=== PATIENT | female | born 1950 | race Caucasian/White ===

== ENCOUNTER 2017-05-27 21:03 | Emergency (ER) | payer MEDICARE, BC ==
[2017-05-27 21:51] LABS: Basophils % (A) 1 %; CH 30.7; CHCM 34.7; Eosinophils # (A) 0.4 k/uL (0-0.7); Eosinophils % (A) 9 %; HCT 41.4 % (34.0-46.0); HDW 2.52; Luc # (Auto) 0.12; Luc % (Auto) 2; Lymphocytes # (A) 1.6 k/uL (1.0-4.8); Lymphocytes % (A) 32 %; MCH 30.1 pg (25.0-35.0); MCHC 33.9 g/dL (31.0-37.0); MCV 88.9 fL (80.0-100.0); Mean Platelet Volume 7.2; Monocytes # (A) 0.4 k/uL (0-1.0); Monocytes % (A) 8 %; Neutrophils # (A) 2.5 k/uL (1.3-7.7); Neutrophils % (A) 49 %; RBC 4.65 m/uL (3.80-5.40); RDW 13.4 % (11.5-15.5); WBC 5.1 k/uL (3.8-10.6); WBC (Perox) 4.94
[2017-05-27 22:00] LABS: ALT 40 U/L (9-52); AST 26 U/L (14-36); Alkaline Phosphatase 50 U/L (38-126); Anion Gap 10 mmol/L; Blood Urea Nitrogen 15 mg/dL (7-17); Calcium 9.4 mg/dL (8.4-10.2); Carbon Dioxide 25 mmol/L (22-30); Chloride 107 mmol/L (98-107); Glucose 111 mg/dL (74-99); Non-African American GFR(MDRD) >60 (>60 ml/min/1.73 sqM); Potassium 3.7 mmol/L (3.5-5.1); Sodium 142 mmol/L (137-145); Total Bilirubin 0.4 mg/dL (0.2-1.3); Total Protein 7.3 g/dL (6.3-8.2)
--- NOTE | 2017-05-27 22:06 | ED ---
General Adult HPI - General Chief complaint: Shortness of Breath Stated complaint: MERYL-Cardiac Pt Time Seen by Provider: 05/27/17 21:25 Source: patient, RN notes reviewed, old records reviewed Mode of arrival: ambulatory Limitations: no limitations - History of Present Illness Initial comments: This is a 66-year-old female here for evaluation of chest pain, patient has intermittent chest pain and burning. Patient has history of CAD history of stents history of CABG. No isn't cardiac disease or illness. Most recent stent was about 10 years ago. Patient has no fever cough or congestion. She says she is mildly short of breath. No recent travel history or sick contacts. Patient's vision nursing without just prior to arrival she became very weak her states she'll nearly collapsed, he was able her up she did come to. Patient was not postictal. Patient did not complain of headache or bowel pain. She has significant has continued complaining of mild chest pain. - Related Data Home Medications Medication Instructions Recorded Confirmed Albuterol Inhaler [Ventolin Hfa 1 - 2 puff INHALATION RT-QID PRN 05/27/17 Inhaler] Aspirin EC [Ecotrin Low Dose] 81 mg PO DAILY 05/27/17 05/27/17 Cholecalciferol (Vitamin D3) 2,000 unit PO DAILY 05/27/17 05/27/17 [Vitamin D3] Metoprolol Succinate (ER) [Toprol 12.5 mg PO DAILY 05/27/17 05/27/17 Xl] Nitroglycerin Sl Tabs [Nitrostat] 0.4 mg SUBLINGUAL Q5M PRN 05/27/17 05/27/17 [place]-3 Fatty Acids/Fish Oil [Fish 1 cap PO DAILY 05/27/17 05/27/17 Oil 1,000 mg Softgel] Pantoprazole [Protonix] 40 mg PO DAILY 05/27/17 05/27/17 Rosuvastatin [Crestor] 20 mg PO HS 05/27/17 05/27/17 Allergies Allergy/AdvReac Type Severity Reaction Status Date / Time meperidine [From Demerol] Allergy Rash/Hives Verified 05/27/17 21:36 metronidazole [From Flagyl] Allergy Rash/Hives Verified 05/27/17 21:36 Review of Systems ROS Statement: Those systems with pertinent positive or pertinent negative responses have been documented in the HPI. ROS Other: All systems not noted in ROS Statement are negative. Past Medical History Past Medical History: Coronary Artery Disease (CAD) History of Any Multi-Drug Resistant Organisms: None Reported Past Surgical History: Coronary Bypass/CABG Past Psychological History: No Psychological Hx Reported Smoking Status: Never smoker Past Alcohol Use History: None Reported General Exam Limitations: no limitations General appearance: alert, in no apparent distress Head exam: Present: atraumatic, normocephalic, normal inspection Eye exam: Present: normal appearance, PERRL, EOMI. Absent: scleral icterus, conjunctival injection, periorbital swelling ENT exam: Present: normal exam, mucous membranes moist Neck exam: Present: normal inspection. Absent: tenderness, meningismus, lymphadenopathy Respiratory exam: Present: normal lung sounds bilaterally. Absent: respiratory distress, wheezes, rales, rhonchi, stridor Cardiovascular Exam: Present: regular rate, normal rhythm, normal heart sounds. Absent: systolic murmur, diastolic murmur, rubs, gallop, clicks GI/Abdominal exam: Present: soft, normal bowel sounds. Absent: distended, tenderness, guarding, rebound, rigid Extremities exam: Present: normal inspection, full ROM, normal capillary refill. Absent: tenderness, pedal edema, joint swelling, calf tenderness Back exam: Present: normal inspection Neurological exam: Present: alert, oriented X3, CN II-XII intact Psychiatric exam: Present: normal affect, normal mood Skin exam: Present: warm, dry, intact, normal color. Absent: rash Course Vital Signs 05/27/17 05/27/17 05/27/17 21:10 21:37 22:00 Temperature 97.0 F L 98 F Pulse Rate 57 L 64 Respiratory 18 20 16 Rate Blood Pressure 173/81 159/87 O2 Sat by Pulse 100 99 Oximetry 05/27/17 05/27/17 23:00 23:58 Temperature 99.2 F Pulse Rate 69 63 Respiratory 20 18 Rate Blood Pressure 167/87 127/64 O2 Sat by Pulse 98 96 Oximetry - Reevaluation(s) Reevaluation #1: 05/27/17 23:12 Patient states her chest pain remains resolved but she is having symptoms of diarrhea and maybe some blood in her stool but she does believe that his hemorrhoid related EKG Findings - EKG Comments: EKG Findings:: EKG shows normal sinus rhythm at 66, IL 132, QRS 80, QTC 438 Medical Decision Making - Medical Decision Making 66 female ileo-chest pain history of significant heart disease and stents. Patient had a near syncopal event while at her house earlier today. This time she feels mildly improved with occasional bouts of chest pain. Patient will be admitted for cardiac observation - Lab Data Result diagrams: 05/27/17 21:30 05/27/17 21:30 Lab Results 05/27/17 05/27/17 05/27/17 Range/Units 21:30 21:30 21:30 WBC 5.1 (3.8-10.6) k/uL RBC 4.65 (3.80-5.40) m/uL Hgb 14.0 (11.4-16.0) gm/dL Hct 41.4 (34.0-46.0) % MCV 88.9 (80.0-100.0) fL MCH 30.1 (25.0-35.0) pg MCHC 33.9 (31.0-37.0) g/dL RDW 13.4 (11.5-15.5) % Plt Count 196 (150-450) k/uL Neutrophils % 49 % Lymphocytes % 32 % Monocytes % 8 % Eosinophils % 9 % Basophils % 1 % Neutrophils # 2.5 (1.3-7.7) k/uL Lymphocytes # 1.6 (1.0-4.8) k/uL Monocytes # 0.4 (0-1.0) k/uL Eosinophils # 0.4 (0-0.7) k/uL Basophils # 0.0 (0-0.2) k/uL PT (9.0-12.0) sec INR (<1.2) APTT (22.0-30.0) sec Sodium 142 (137-145) mmol/L Potassium 3.7 (3.5-5.1) mmol/L Chloride 107 (98-107) mmol/L Carbon Dioxide 25 (22-30) mmol/L Anion Gap 10 mmol/L BUN 15 (7-17) mg/dL Creatinine 0.64 (0.52-1.04) mg/dL Est GFR (MDRD) Af Amer >60 (>60 ml/min/1.73 sqM) Est GFR (MDRD) Non-Af >60 (>60 ml/min/1.73 sqM) Glucose 111 H (74-99) mg/dL Calcium 9.4 (8.4-10.2) mg/dL Total Bilirubin 0.4 (0.2-1.3) mg/dL AST 26 (14-36) U/L ALT 40 (9-52) U/L Alkaline Phosphatase 50 (38-126) U/L Total Creatine Kinase 143 H (30-135) U/L CK-MB (CK-2) 2.6 H* (0.0-2.4) ng/mL CK-MB (CK-2) Rel Index 1.8 Troponin I <0.012 (0.000-0.034) ng/mL Total Protein 7.3 (6.3-8.2) g/dL Albumin 4.5 (3.5-5.0) g/dL 05/27/17 Range/Units 21:30 WBC (3.8-10.6) k/uL RBC (3.80-5.40) m/uL Hgb (11.4-16.0) gm/dL Hct (34.0-46.0) % MCV (80.0-100.0) fL MCH (25.0-35.0) pg MCHC (31.0-37.0) g/dL RDW (11.5-15.5) % Plt Count (150-450) k/uL Neutrophils % % Lymphocytes % % Monocytes % % Eosinophils % % Basophils % % Neutrophils # (1.3-7.7) k/uL Lymphocytes # (1.0-4.8) k/uL Monocytes # (0-1.0) k/uL Eosinophils # (0-0.7) k/uL Basophils # (0-0.2) k/uL PT 10.3 (9.0-12.0) sec INR 1.0 (<1.2) APTT 20.6 L (22.0-30.0) sec Sodium (137-145) mmol/L Potassium (3.5-5.1) mmol/L Chloride (98-107) mmol/L Carbon Dioxide (22-30) mmol/L Anion Gap mmol/L BUN (7-17) mg/dL Creatinine (0.52-1.04) mg/dL Est GFR (MDRD) Af Amer (>60 ml/min/1.73 sqM) Est GFR (MDRD) Non-Af (>60 ml/min/1.73 sqM) Glucose (74-99) mg/dL Calcium (8.4-10.2) mg/dL Total Bilirubin (0.2-1.3) mg/dL AST (14-36) U/L ALT (9-52) U/L Alkaline Phosphatase (38-126) U/L Total Creatine Kinase (30-135) U/L CK-MB (CK-2) (0.0-2.4) ng/mL CK-MB (CK-2) Rel Index Troponin I (0.000-0.034) ng/mL Total Protein (6.3-8.2) g/dL Albumin (3.5-5.0) g/dL - Radiology Data Radiology results: report reviewed (Chest x-ray negative for acute disease, CTA negative for acute disease), image reviewed Critical Care Time Critical Care Time: Yes Total Critical Care Time: 31 Disposition Clinical Impression: Chest pain, Near syncope Disposition: HOME SELF-CARE Condition: Undetermined Instructions: Chest Pain (ED) Referrals: Roel Carrizales MD [Primary Care Provider] - 1-2 days
[2017-05-27 22:08] LABS: Creatine Kinase 143 U/L (30-135)
[2017-05-27 22:12] LABS: Prothrombin Time 10.3 sec (9.0-12.0)
[2017-05-27 22:21] LABS: Troponin I <0.012 ng/mL (0.000-0.034)
[2017-05-27] MEDS ORDERED: RX INFO: IV CONTRAST WAS GIVEN 1 EACH MISC MISCELLANE PRN (22:24)
[2017-05-27 22:28] LABS: Creatine Kinase MB 2.6 ng/mL (0.0-2.4)
[2017-05-27 22:33] LABS: Partial Thromboplastin Time 20.6 sec (22.0-30.0)
--- NOTE | 2017-05-27 22:37 | XR ---
EXAM: XR Chest, 2 Views CLINICAL HISTORY: Reason: difficulty breathing TECHNIQUE: Frontal and lateral views of the chest. COMPARISON: No relevant prior studies available. FINDINGS: Lungs: Lungs are clear. Pleural space: No evidence of pneumothorax or pleural effusion. Heart: Heart size is within normal limits. Mediastinum: Mediastinal structures are unremarkable Bones/joints: Post surgical changes of previous median sternotomy. Imaged bony thorax is unremarkable. IMPRESSION: No radiographic evidence of active chest disease.
--- NOTE | 2017-05-27 23:50 | CT ---
EXAM: CT Chest With Intravenous Contrast CLINICAL HISTORY: Reason: Pain TECHNIQUE: Axial computed tomography images of the chest with intravenous contrast during the arterial phase of enhancement. CTDI is 30.2 mGy and DLP is 466.0 mGy-cm. This CT exam was performed using one or more of the following dose reduction techniques: automated exposure control, adjustment of the mA and/or kV according to patient size, and/or use of iterative reconstruction technique. Coronal and sagittal reformatted images were created and reviewed. COMPARISON: Chest radiographs 05/27/2017 FINDINGS: Pulmonary arteries: No evidence of acute pulmonary embolic disease. No evidence of thoracic aortic aneurysm or dissection. Aorta: No thoracic aortic aneurysm. Lungs: Small 4 mm left apical pulmonary nodule. Mild dependent pulmonary atelectatic changes. No acute pulmonary infiltrates or consolidations. Pleural space: No evidence of pleural effusion or pneumothorax. Heart: Heart size is within normal limits. No significant pericardial effusion. Bones/joints: Post surgical changes of previous median sternotomy. Mild thoracic spondylosis. Lymph nodes: Mildly enlarged precarinal mediastinal lymph node measuring approximately 1.2 cm. Borderline enlarged left hilar lymph node measuring approximately 1.0 cm. Liver: Evidence of small hiatal hernia. Small subcentimeter hepatic low-density lesions which are nonspecific and may represent small hepatic cysts, but too small for definitive CT characterization. IMPRESSION: No evidence of acute pulmonary embolic disease. No evidence of thoracic aortic aneurysm or dissection. Mildly enlarged mediastinal and borderline enlarged left hilar lymph nodes which are nonspecific. Small 4 mm left apical pulmonary nodule. CT follow-up recommended as per Fleischner criteria. Probable small subcentimeter hepatic cysts. Small hiatal hernia
[2017-05-28 00:01] VITALS: BP 127/64; PULSE 63; RESP 18; TEMP 99.2
== END 2017-05-28 00:30 | disposition home or self-care (01) ==
LOC: EC 21:03
DX: R07.9 Chest pain, unspecified (principal); R55 Syncope and collapse; R06.02 Shortness of breath; I25.10 Atherosclerotic heart disease of native coronary artery without angina pectoris; Z95.1 Presence of aortocoronary bypass graft; Z79.82 Long term (current) use of aspirin; Z79.899 Other long term (current) drug therapy; Z88.1 Allergy status to other antibiotic agents; Z88.5 Allergy status to narcotic agent
CPT/HCPCS: 36415; 93005; 80053; 82550; 82553; 84484; 85025; 85610; 85730; 71020; 71275; 99291; Q9967

== ENCOUNTER 2017-12-31 17:57 | Emergency (ER) | payer MEDICARE, BC ==
--- NOTE | 2017-12-31 18:13 | ED ---
General Adult HPI - General Stated complaint: CHEST PAIN Time Seen by Provider: 12/31/17 18:03 Source: RN notes reviewed, old records reviewed - History of Present Illness Initial comments: This is a 67-year-old female the ER for evaluation of chest pain, severe anterior crushing chest pain. Rating to her back. Patient does have history of CAD and CABG, pain right her prior to arrival, positive swelling positive shortness of breath severe pain - Related Data Home Medications Medication Instructions Recorded Confirmed Albuterol Inhaler [Ventolin Hfa 1 - 2 puff INHALATION RT-QID PRN 05/27/17 Inhaler] Aspirin EC [Ecotrin Low Dose] 81 mg PO DAILY 05/27/17 12/31/17 Cholecalciferol (Vitamin D3) 2,000 unit PO DAILY 05/27/17 12/31/17 [Vitamin D3] Metoprolol Succinate (ER) [Toprol 12.5 mg PO DAILY 05/27/17 12/31/17 Xl] Nitroglycerin Sl Tabs [Nitrostat] 0.4 mg SUBLINGUAL Q5M PRN 05/27/17 12/31/17 [place]-3 Fatty Acids/Fish Oil [Fish 1 cap PO DAILY 05/27/17 12/31/17 Oil 1,000 mg Softgel] Rosuvastatin [Crestor] 20 mg PO HS 05/27/17 12/31/17 HYDROcodone/APAP 5-325MG [[place] 0.5 tab PO BID PRN 12/31/17 12/31/17 5-325] Pantoprazole Sodium [Protonix] 20 mg PO DAILY 12/31/17 12/31/17 Allergies Allergy/AdvReac Type Severity Reaction Status Date / Time meperidine [From Demerol] Allergy Rash/Hives Verified 12/31/17 18:46 metronidazole [From Flagyl] Allergy Rash/Hives Verified 12/31/17 18:46 Review of Systems ROS Statement: Those systems with pertinent positive or pertinent negative responses have been documented in the HPI. ROS Other: All systems not noted in ROS Statement are negative. Past Medical History Past Medical History: Coronary Artery Disease (CAD) History of Any Multi-Drug Resistant Organisms: None Reported Past Surgical History: Coronary Bypass/CABG Past Psychological History: No Psychological Hx Reported Smoking Status: Never smoker Past Alcohol Use History: None Reported General Exam General appearance: alert, in no apparent distress, anxious Head exam: Present: atraumatic, normocephalic, normal inspection Eye exam: Present: normal appearance, PERRL, EOMI. Absent: scleral icterus, conjunctival injection, periorbital swelling ENT exam: Present: normal exam, mucous membranes moist Neck exam: Present: normal inspection. Absent: tenderness, meningismus, lymphadenopathy Respiratory exam: Present: normal lung sounds bilaterally. Absent: respiratory distress, wheezes, rales, rhonchi, stridor Cardiovascular Exam: Present: regular rate, normal rhythm, normal heart sounds. Absent: systolic murmur, diastolic murmur, rubs, gallop, clicks GI/Abdominal exam: Present: soft, normal bowel sounds. Absent: distended, tenderness, guarding, rebound, rigid Extremities exam: Present: normal inspection, full ROM, normal capillary refill. Absent: tenderness, pedal edema, joint swelling, calf tenderness Back exam: Present: normal inspection Neurological exam: Present: alert, oriented X3, CN II-XII intact Psychiatric exam: Present: normal affect, normal mood Skin exam: Present: warm, dry, intact, normal color. 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 Patient coming to the second troponin EKG Findings - EKG Comments: EKG Findings:: EKG shows normal sinus rhythm at 77, IL 152, QRS 84, QTC 448. Repeat. EKG shows normal sinus rhythm at 70, IL 160, QRS 84, QTC 440 Medical Decision Making - Medical Decision Making 67 cemented ER positive chest pain negative troponin 2 normal EKG, patient can be discharged home - Lab Data Result diagrams: 12/31/17 17:35 12/31/17 17:35 Lab Results 12/31/17 12/31/17 12/31/17 Range/Units 17:35 17:35 17:35 WBC 5.5 (3.8-10.6) k/uL RBC 4.68 (3.80-5.40) m/uL Hgb 13.9 (11.4-16.0) gm/dL Hct 41.0 (34.0-46.0) % MCV 87.7 (80.0-100.0) fL MCH 29.8 (25.0-35.0) pg MCHC 33.9 (31.0-37.0) g/dL RDW 12.3 (11.5-15.5) % Plt Count 200 (150-450) k/uL Neutrophils % 54 % Lymphocytes % 33 % Monocytes % 5 % Eosinophils % 6 % Basophils % 0 % Neutrophils # 3.0 (1.3-7.7) k/uL Lymphocytes # 1.8 (1.0-4.8) k/uL Monocytes # 0.3 (0-1.0) k/uL Eosinophils # 0.3 (0-0.7) k/uL Basophils # 0.0 (0-0.2) k/uL PT (9.0-12.0) sec INR (<1.2) APTT (22.0-30.0) sec D-Dimer (<0.60) mg/L FEU Sodium 144 (137-145) mmol/L Potassium 4.2 (3.5-5.1) mmol/L Chloride 104 (98-107) mmol/L Carbon Dioxide 24 (22-30) mmol/L Anion Gap 16 mmol/L BUN 19 H (7-17) mg/dL Creatinine 0.67 (0.52-1.04) mg/dL Est GFR (CKD-EPI)AfAm >90 (>60 ml/min/1.73 sqM) Est GFR (CKD-EPI)NonAf >90 (>60 ml/min/1.73 sqM) Glucose 101 H (74-99) mg/dL Calcium 9.7 (8.4-10.2) mg/dL Magnesium 2.3 (1.6-2.3) mg/dL Total Bilirubin 0.5 (0.2-1.3) mg/dL AST 29 (14-36) U/L ALT 29 (9-52) U/L Alkaline Phosphatase 52 (38-126) U/L Total Creatine Kinase 145 H (30-135) U/L CK-MB (CK-2) 2.0 (0.0-2.4) ng/mL CK-MB (CK-2) Rel Index 1.4 Troponin I <0.012 (0.000-0.034) ng/mL NT-Pro-B Natriuret Pep pg/mL Total Protein 7.7 (6.3-8.2) g/dL Albumin 5.0 (3.5-5.0) g/dL Lipase 200 (23-300) U/L 12/31/17 12/31/17 Range/Units 17:35 17:35 WBC (3.8-10.6) k/uL RBC (3.80-5.40) m/uL Hgb (11.4-16.0) gm/dL Hct (34.0-46.0) % MCV (80.0-100.0) fL MCH (25.0-35.0) pg MCHC (31.0-37.0) g/dL RDW (11.5-15.5) % Plt Count (150-450) k/uL Neutrophils % % Lymphocytes % % Monocytes % % Eosinophils % % Basophils % % Neutrophils # (1.3-7.7) k/uL Lymphocytes # (1.0-4.8) k/uL Monocytes # (0-1.0) k/uL Eosinophils # (0-0.7) k/uL Basophils # (0-0.2) k/uL PT 10.0 (9.0-12.0) sec INR 1.0 (<1.2) APTT 22.2 (22.0-30.0) sec D-Dimer 0.25 (<0.60) mg/L FEU Sodium (137-145) mmol/L Potassium (3.5-5.1) mmol/L Chloride (98-107) mmol/L Carbon Dioxide (22-30) mmol/L Anion Gap mmol/L BUN (7-17) mg/dL Creatinine (0.52-1.04) mg/dL Est GFR (CKD-EPI)AfAm (>60 ml/min/1.73 sqM) Est GFR (CKD-EPI)NonAf (>60 ml/min/1.73 sqM) Glucose (74-99) mg/dL Calcium (8.4-10.2) mg/dL Magnesium (1.6-2.3) mg/dL Total Bilirubin (0.2-1.3) mg/dL AST (14-36) U/L ALT (9-52) U/L Alkaline Phosphatase (38-126) U/L Total Creatine Kinase (30-135) U/L CK-MB (CK-2) (0.0-2.4) ng/mL CK-MB (CK-2) Rel Index Troponin I (0.000-0.034) ng/mL NT-Pro-B Natriuret Pep 65 pg/mL Total Protein (6.3-8.2) g/dL Albumin (3.5-5.0) g/dL Lipase (23-300) U/L - Radiology Data Radiology results: report reviewed (CTA chest negative), image reviewed Disposition Clinical Impression: Chest pain Disposition: HOME SELF-CARE Condition: Undetermined Instructions: Chest Pain (ED) Is patient prescribed a controlled substance at d/c from ED?: No Referrals: Roel Carrizales MD [Primary Care Provider] - 1-2 days
[2017-12-31] MEDS ORDERED: SODIUM CHLORIDE 0.9% 1,000 ML IV STA (18:23)
[2017-12-31] MEDS ORDERED: MORPHINE SULFATE 4 MG/0.8 ML SYRINGE (INJ) IV STA (18:23)
[2017-12-31 18:53] LABS: Basophils % (A) 0 %; Eosinophils # (A) 0.3 k/uL (0-0.7); Eosinophils % (A) 6 %; HGB 13.9 gm/dL (11.4-16.0); Lymphocytes # (A) 1.8 k/uL (1.0-4.8); Lymphocytes % (A) 33 %; MCH 29.8 pg (25.0-35.0); MCHC 33.9 g/dL (31.0-37.0); MCV 87.7 fL (80.0-100.0); Mean Platelet Volume 6.4; Monocytes # (A) 0.3 k/uL (0-1.0); Monocytes % (A) 5 %; Neutrophils % (A) 54 %; Platelet Count 200 k/uL (150-450); RBC 4.68 m/uL (3.80-5.40); RDW 12.3 % (11.5-15.5); WBC 5.5 k/uL (3.8-10.6)
[2017-12-31 19:08] LABS: ALT 29 U/L (9-52); AST 29 U/L (14-36); Alkaline Phosphatase 52 U/L (38-126); Anion Gap 16 mmol/L; Blood Urea Nitrogen 19 mg/dL (7-17); Calcium 9.7 mg/dL (8.4-10.2); Carbon Dioxide 24 mmol/L (22-30); Chloride 104 mmol/L (98-107); Glucose 101 mg/dL (74-99); Lipase 200 U/L (23-300); Magnesium 2.3 mg/dL (1.6-2.3); Potassium 4.2 mmol/L (3.5-5.1); Sodium 144 mmol/L (137-145); Total Bilirubin 0.5 mg/dL (0.2-1.3); Total Protein 7.7 g/dL (6.3-8.2)
[2017-12-31 19:09] LABS: Creatine Kinase 145 U/L (30-135)
--- NOTE | 2017-12-31 19:13 | XR ---
EXAMINATION TYPE: XR chest 2V DATE OF EXAM: 12/31/2017 COMPARISON: 05/27/2017 HISTORY: Chest pain TECHNIQUE: Frontal and lateral views of the chest are obtained. FINDINGS: Heart and mediastinum are normal. Lungs are clear. Diaphragm is normal. There are sternal wires. Bony thorax is intact. IMPRESSION: Normal chest. No change.
[2017-12-31 19:19] LABS: Troponin I <0.012 ng/mL (0.000-0.034)
[2017-12-31] MEDS ORDERED: diphenhydrAMINE 50 MG/ML 1 ML VIAL IVP STA (19:19)
[2017-12-31 19:35] LABS: D-Dimer 0.25 mg/L FEU (<0.60); Partial Thromboplastin Time 22.2 sec (22.0-30.0)
--- NOTE | 2017-12-31 20:00 | CT ---
EXAMINATION TYPE: CT angio thoracic/abd aorta DATE OF EXAM: 12/31/2017 COMPARISON: NONE HISTORY: Chest pain. CT DLP: 700.9 mGycm. Automated Exposure Control for Dose Reduction was Utilized. CONTRAST: CT scan of the thorax, abdomen and pelvis is performed with IV Contrast, patient injected with 100ml mL of Isovue 370. There are 3-D post processed images. FINDINGS: The lungs are clear of infiltrate. There is no pleural effusion. Heart size is normal. Thoracic aorta shows mild atheromatous change. There is no evidence of aortic aneurysm or dissection. Ascending aor ta measures up to 3 cm. Abdominal aorta is patent. There is no evidence of abdominal aortic aneurysm or dissection. Iliac art eries are widely patent. There is bilateral patency of the renal arteries. There is patency of the ce liac artery and the superior mesenteric artery. Kidneys show normal contrast opacification. There is no retroperitoneal adenopathy. There is no ascites. Conclusion negative CT angiogram of the thoracic and abdominal aorta.
[2017-12-31 21:19] VITALS: RESP 14
[2017-12-31 22:03] VITALS: BP 128/67; PULSE 52; TEMP 97.9
== END 2017-12-31 22:19 | disposition home or self-care (01) ==
LOC: EC 17:57
DX: R07.9 Chest pain, unspecified (principal); R06.02 Shortness of breath; R22.2 Localized swelling, mass and lump, trunk; I25.10 Atherosclerotic heart disease of native coronary artery without angina pectoris; Z88.1 Allergy status to other antibiotic agents; Z88.5 Allergy status to narcotic agent; Z79.82 Long term (current) use of aspirin; Z79.899 Other long term (current) drug therapy; Z53.8 Procedure and treatment not carried out for other reasons; Z95.1 Presence of aortocoronary bypass graft
CPT/HCPCS: 99285; 96374; 96361 ×3; 36415; 93005; 85379; 83880; 80053; 82550; 82553; 83690; 83735; 84484; 85025; 85610; 85730; 71046; 75635; 71275; Q9967; J2270

== ENCOUNTER 2019-11-29 20:56 | Observation (INO) | payer MEDICARE, BC ==
[2019-11-29] MEDS ORDERED: ASPIRIN 81 MG PO STA (21:24)
[2019-11-29 21:35] LABS: Basophils % (A) 0 %; Eosinophils # (A) 0.3 k/uL (0-0.7); Eosinophils % (A) 5 %; HGB 14.4 gm/dL (11.4-16.0); Lymphocytes # (A) 1.6 k/uL (1.0-4.8); Lymphocytes % (A) 30 %; MCH 30.3 pg (25.0-35.0); MCHC 34.3 g/dL (31.0-37.0); MCV 88.4 fL (80.0-100.0); Mean Platelet Volume 6.6; Monocytes # (A) 0.3 k/uL (0-1.0); Monocytes % (A) 6 %; Neutrophils # (A) 3.1 k/uL (1.3-7.7); Neutrophils % (A) 56 %; Platelet Count 216 k/uL (150-450); RBC 4.75 m/uL (3.80-5.40); RDW 12.1 % (11.5-15.5); WBC 5.5 k/uL (3.8-10.6)
[2019-11-29 21:42] LABS: INR 0.9 (<1.2); Prothrombin Time 9.7 sec (9.0-12.0)
--- NOTE | 2019-11-29 21:44 | XR ---
EXAMINATION TYPE: XR chest 2V DATE OF EXAM: 11/29/2019 COMPARISON: Chest x-ray and CT December 31, 2017. HISTORY: Chest pain. TECHNIQUE: Frontal and lateral views of the chest are obtained. FINDINGS: Overlying sternal wires some which are broken are redemonstrated. Mediastinal clips are aga in seen. Overlying EKG leads are again seen. There is no focal air space opacity, pleural effusion, o r pneumothorax seen. The cardiac silhouette size remains within normal limits. The osseous structu res are intact. IMPRESSION: No acute cardiopulmonary process. No significant change from prior studies.
[2019-11-29 21:48] LABS: ALT 25 U/L (4-34); AST 29 U/L (14-36); African American GFR (CKD) >90 (>60 ml/min/1.73 sqM); Albumin 4.6 g/dL (3.5-5.0); Alkaline Phosphatase 51 U/L (38-126); Anion Gap 7 mmol/L; Blood Urea Nitrogen 17 mg/dL (7-17); Calcium 9.5 mg/dL (8.4-10.2); Carbon Dioxide 27 mmol/L (22-30); Chloride 105 mmol/L (98-107); Glucose 120 mg/dL (74-99); Magnesium 2.4 mg/dL (1.6-2.3); Non-African American GFR(CKD) >90 (>60 ml/min/1.73 sqM); Potassium 3.9 mmol/L (3.5-5.1); Sodium 139 mmol/L (137-145); Total Bilirubin 0.3 mg/dL (0.2-1.3); Total Protein 7.3 g/dL (6.3-8.2)
[2019-11-29 21:49] LABS: Partial Thromboplastin Time 22.1 sec (22.0-30.0)
--- NOTE | 2019-11-29 21:49 | ED ---
Chest Pain HPI - General Chief Complaint: Chest Pain Stated Complaint: Chest Pain Time Seen by Provider: 11/29/19 21:00 Source: patient Mode of arrival: ambulatory Limitations: no limitations - History of Present Illness Initial Comments: The patient is a 69-year-old female with past nuchal history of coronary disease with CABG in 2007 who presents to the emergency room with reported chest pain. She describes it as a chest pressure in the center of her chest which radiates through to her back and up to her left jaw. States the pain is intermittent without provocative factors. Admits to associated shortness of breath with the pain. Also reports that it feels as if her heart is skipping a beat. reports that she looks winded going up a flight of stairs. She has had intermittent pain since . Denies any active chest pain at this moment. Admits to associated nausea without vomiting. Denies diaphoresis. No cough, fevers or hemoptysis. Denies history of DVT or PE. No lower extremity edema. Denies calf pain or swelling. Bypass is performed in 2007. States that afterwards she had a stent placed in 2009. She sees Dr. Carlos out of [facility]. Last stress test was one year ago and catheterization 5 years ago. There are no other alleviating, precipitating or modifying factors - Related Data Home Medications Medication Instructions Recorded Confirmed Albuterol Inhaler [Ventolin Hfa 2 puff INHALATION RT-QID PRN 05/27/17 11/29/19 Inhaler] Aspirin EC [Ecotrin Low Dose] 81 mg PO DAILY 05/27/17 11/29/19 Cholecalciferol (Vitamin D3) 2,000 unit PO DAILY 05/27/17 11/29/19 [Vitamin D3] Metoprolol Succinate (ER) [Toprol 18.75 mg PO DAILY 05/27/17 11/29/19 XL] Nitroglycerin Sl Tabs [Nitrostat] 0.4 mg SUBLINGUAL Q5M PRN 05/27/17 11/29/19 [place] Fatty Acids/Fish Oil [Fish 1 cap PO DAILY 05/27/17 11/29/19 Oil 1,000 mg Softgel] Rosuvastatin [Crestor] 20 mg PO HS 05/27/17 11/29/19 HYDROcodone/APAP 5-325MG [[place] 0.5 tab PO TID PRN 12/31/17 11/29/19 5-325] Multivitamins, Thera [Multivitamin 1 tab PO DAILY 11/29/19 11/29/19 (formulary)] Pantoprazole [Protonix] 40 mg PO DAILY 11/29/19 11/29/19 Ubidecarenone [Co Q-10] 100 mg PO DAILY 11/29/19 11/29/19 Previous Rx's Medication Instructions Recorded Isosorbide Mononitrate ER [Imdur] 30 mg PO DAILY #30 tab.er.24h 12/01/19 Allergies Allergy/AdvReac Type Severity Reaction Status Date / Time meperidine [From Demerol] Allergy Rash/Hives Verified 11/29/19 21:00 metronidazole [From Flagyl] Allergy Rash/Hives Verified 11/29/19 21:00 Review of Systems ROS Statement: Those systems with pertinent positive or pertinent negative responses have been documented in the HPI. ROS Other: All systems not noted in ROS Statement are negative. EKG Findings - EKG Comments: EKG Findings:: EKG performed at 2106 demonstrates normal sinus rhythm with a ventricular rate of 64. WA interval 146. QRS 76. QTC of 408. There are inverted T waves in leads V2 through V6. No acute ST segment elevation. EKG is compared patient's previous in 2018 and T-wave inversions are new. Repeat EKG at 2156 demonstrates sinus bradycardia with ventricular rate of 56. WA interval 160. QRS 80. QTC of 399. No acute ST segment elevations. Inverted T-wave in lead V2 to V6. No high degree block Past Medical History Past Medical History: Coronary Artery Disease (CAD) History of Any Multi-Drug Resistant Organisms: None Reported Past Surgical History: Coronary Bypass/CABG Past Psychological History: No Psychological Hx Reported Smoking Status: Never smoker Past Alcohol Use History: None Reported Past Drug Use History: None Reported General Exam Limitations: no limitations General appearance: alert, in no apparent distress Head exam: Present: atraumatic, normocephalic, normal inspection Eye exam: Present: normal appearance, PERRL, EOMI. Absent: scleral icterus, conjunctival injection, periorbital swelling ENT exam: Present: normal exam, mucous membranes moist Neck exam: Present: normal inspection. Absent: tenderness, meningismus, lymphadenopathy Respiratory exam: Present: normal lung sounds bilaterally. Absent: respiratory distress, wheezes, rales, rhonchi, stridor Cardiovascular Exam: Present: regular rate, normal rhythm, normal heart sounds. Absent: systolic murmur, diastolic murmur, rubs, gallop, clicks GI/Abdominal exam: Present: soft, normal bowel sounds. Absent: distended, tenderness, guarding, rebound, rigid Extremities exam: Present: normal inspection, full ROM, normal capillary refill. Absent: tenderness, pedal edema, joint swelling, calf tenderness Back exam: Present: normal inspection Neurological exam: Present: alert, oriented X3, CN II-XII intact Psychiatric exam: Present: normal affect, normal mood Skin exam: Present: warm, dry, intact, normal color. Absent: rash Course Vital Signs 11/29/19 11/29/19 20:58 22:10 Temperature 97.8 F Pulse Rate 78 53 L Respiratory 20 17 Rate Blood Pressure 190/85 138/86 O2 Sat by Pulse 100 97 Oximetry Chest Pain MDM - MDM Upon arrival patient was placed into room 1. A thorough history and physical exam was performed. 12-lead EKG demonstrates inverted T waves in leads V2 through V6. Peripheral IV was established. Laboratory studies were conducted. The patient was given an additional 2- 81 mg aspirin as she did take 2 of them at home. Laboratory studies demonstrate no acute findings. First troponin is negative. Chest x-ray demonstrates no acute cardiothoracic process. No significant change from prior studies. I did repeat a 12-lead EKG as the patient did report return of her chest pain. He continues to demonstrate the inverted T waves with no ST elevation. Because of the patient's cardiac history I did recommend admission to the hospital in order to trend her troponins. I recommended heparinizing the patient as she does not have any contraindications. The patient did agree to this. I discussed the case with Dr. Villeda who accepted admission. Cardiology will be consulted. The patient remained in stable con dition awaiting a bed on the floor Critical Care Time Critical Care Time: Yes Critical Care Time: 35 minutes Disposition Clinical Impression: Chest pain, History of ASCVD Disposition: ADMITTED IP TO THIS [facility] Condition: Stable Is patient prescribed a controlled substance at d/c from ED?: No Decision to Admit Reason: Admit from EC Decision Date: 11/29/19 Decision Time: 22:15
[2019-11-29] MEDS ORDERED: NALOXONE 0.4 MG/ML 1 ML VIAL IV PRN (22:15)
[2019-11-29] MEDS ORDERED: HEPARIN SODIUM,PORCINE 5,000 UNIT/ML 1 ML VIAL IV ONE (22:15)
[2019-11-29] MEDS ORDERED: HEPARIN SODIUM,PORCINE 5,000 UNIT/ML 1 ML VIAL IV PRN (22:15)
[2019-11-29] MEDS ORDERED: ALBUTEROL NEBULIZED 2.5 MG/3 ML INHALATION PRN (22:27)
[2019-11-29] MEDS: HEPARIN SOD,PORK IN 0.45% NACL 25,000 UNIT in 0.45% NACL 1 250ML.BAG IV SCH (22:40)
[2019-11-30] MEDS: HYDROcodone/APAP 5-325MG 1 EACH TAB PO PRN ×3 (00:12→18:41)
[2019-11-30 03:52] LABS: Basophils % (A) 0 %; Eosinophils # (A) 0.3 k/uL (0-0.7); Eosinophils % (A) 5 %; HCT 39.1 % (34.0-46.0); HGB 13.1 gm/dL (11.4-16.0); Lymphocytes # (A) 2.3 k/uL (1.0-4.8); Lymphocytes % (A) 37 %; MCH 30.2 pg (25.0-35.0); MCHC 33.4 g/dL (31.0-37.0); MCV 90.3 fL (80.0-100.0); Mean Platelet Volume 6.8; Monocytes # (A) 0.3 k/uL (0-1.0); Monocytes % (A) 5 %; Neutrophils # (A) 3.1 k/uL (1.3-7.7); Neutrophils % (A) 50 %; Platelet Count 181 k/uL (150-450); RBC 4.33 m/uL (3.80-5.40); RDW 12.2 % (11.5-15.5); WBC 6.3 k/uL (3.8-10.6)
[2019-11-30 04:15] LABS: Partial Thromboplastin Time 70.4 sec (22.0-30.0); Prothrombin Time 10.5 sec (9.0-12.0)
[2019-11-30] MEDS: ASPIRIN 81 MG PO SCH (09:37)
[2019-11-30] MEDS: PANTOPRAZOLE 40 MG TABLET PO SCH (09:37)
--- NOTE | 2019-11-30 09:42 | CONS ---
CONSULTATION CHIEF COMPLAINT: Chest pain. Myrtle is a 69-year-old lady with history of coronary artery disease, status post 2 vessel CABG in 2007 at [facility]. She subsequently has had angioplasty, I believe in 2009 and most recently had a cardiac catheterization 5 years ago and a stress test within the last several years. Comes into hospital complaining of chest pain. She describes it as a precordial chest pressure with left arm and back radiation. She also has shortness of breath with exertion. At the time of my evaluation, she is pain free. She denies leg edema, PND or orthopnea. EKG shows sinus rhythm with changes of myocardial ischemia. The patient is currently on aspirin, Lipitor, heparin and Toprol. Given the symptoms suggestive of unstable angina, EKG changes and known CAD, I advised the patient to undergo cardiac catheterization for further evaluation. She wants to think over. She follows with a ob/gyn physician, I believe from [facility] so she is not entirely sure if she wants to have a catheterization done here in [place]. PAST MEDICAL HISTORY: Significant for CAD, status post CABG, hypertension, dyslipidemia. MEDICATIONS: Include Crestor 20 q. daily, Protonix, Nitrostat, Toprol-XL, [place], vitamin, aspirin and albuterol. ALLERGIES: DEMEROL and FLAGYL. FAMILY HISTORY: Negative for premature coronary artery disease. SOCIAL HISTORY: Negative for current smoking, EtOH abuse, or drug abuse. REVIEW OF SYSTEMS: HEENT: Unremarkable. CARDIAC: As described above. RESPIRATORY: As described above. GI: Negative. GENITOURINARY: Negative. ALLERGY: Negative. SKIN: Negative. MUSCULOSKELETAL: Significant for arthritis. PSYCHOSOCIAL: Negative. ENDOCRINE: Negative. DERMATOLOGICAL: Negative. CONSTITUTIONAL: Negative. ONCOLOGICAL: Negative. INTERMEDIATE TEACHER: Negative. Rest of the system review is not relevant. PHYSICAL EXAM: Patient is afebrile. Heart rate is 60 beats per minute. Blood pressure is 100/60, respiratory rate is 18. There is no jugular venous distention. Carotid upstroke is normal. There is no bruit. Chest exam reveals good air entry bilaterally. Heart exam reveals first and second heart sounds and a systolic murmur at the left lower sternal border. Abdomen is soft. Exam of extremities did not reveal any edema. Peripheral pulses are felt. LABS: Show that the hemoglobin is 13.1, platelet count is 180. Potassium is 3.9, creatinine is 0.6. two sets of troponins are negative. ASSESSMENT: 1. Unstable angina. 2. Coronary artery disease, status post coronary artery bypass grafting. 3. Hypertension. 4. Dyslipidemia. PLAN: This patient will be treated with optimal medical therapy at this time. I will obtain a 2D echo to document her LV function. I am going to try to get hold of her records. She is going to have a cardiac catheterization if she decides to go through it. MMODL / IJN: [id number] /
--- NOTE | 2019-11-30 10:37 | P.HPIM ---
History of Present Illness 63-year-old female came in with complaints of palpitations and some mild chest pressure like sensation which only lasted for a few minutes nonexertional sharp in nature radiating to the left chest patient does have some T-wave inversions in the anterolateral leads which were new compared to the old EKG because of which cardiology recommended cardiac catheterization. 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 Review of Systems REVIEW OF SYSTEMS: CONSTITUTIONAL: No fever, no malaise, no fatigue. HEENT: No recent visual problems or hearing problems. Denied any sore throat. CARDIOVASCULAR: No orthopnea, PND, no syncope. PULMONARY: No shortness of breath, no cough, no hemoptysis. GASTROINTESTINAL: No diarrhea, no nausea, no vomiting, no abdominal pain. NEUROLOGICAL: No headaches, no weakness, no numbness. HEMATOLOGICAL: Denies any bleeding or petechiae. GENITOURINARY: Denies any burning micturition, frequency, or urgency. MUSCULOSKELETAL/RHEUMATOLOGICAL: Denies any joint pain, swelling, or any muscle pain. ENDOCRINE: Denies any polyuria or polydipsia. The rest of the 14-point review of systems is negative. Past Medical History Past Medical History: Coronary Artery Disease (CAD) Additional Past Medical History / Comment(s): Hx Ulcer. Ulcerative Colitis-No problems for a while now History of Any Multi-Drug Resistant Organisms: None Reported Past Surgical History: Coronary Bypass/CABG, Hysterectomy Additional Past Surgical History / Comment(s): Heart stent x1-2010 Past Anesthesia/Blood Transfusion Reactions: No Reported Reaction Past Psychological History: No Psychological Hx Reported Smoking Status: Former smoker Past Alcohol Use History: None Reported Past Drug Use History: None Reported Medications and Allergies Home Medications Medication Instructions Recorded Confirmed Type Albuterol Inhaler [Ventolin Hfa 2 puff INHALATION RT-QID PRN 05/27/17 11/29/19 History Inhaler] Aspirin EC [Ecotrin Low Dose] 81 mg PO DAILY 05/27/17 11/29/19 History Cholecalciferol (Vitamin D3) 2,000 unit PO DAILY 05/27/17 11/29/19 History [Vitamin D3] Metoprolol Succinate (ER) [Toprol 18.75 mg PO DAILY 05/27/17 11/29/19 History Xl] Nitroglycerin Sl Tabs [Nitrostat] 0.4 mg SUBLINGUAL Q5M PRN 05/27/17 11/29/19 History [place]-3 Fatty Acids/Fish Oil [Fish 1 cap PO DAILY 05/27/17 11/29/19 History Oil 1,000 mg Softgel] Rosuvastatin [Crestor] 20 mg PO HS 05/27/17 11/29/19 History HYDROcodone/APAP 5-325MG [[place] 0.5 tab PO TID PRN 12/31/17 11/29/19 History 5-325] Multivitamins, Thera [Multivitamin 1 tab PO DAILY 11/29/19 11/29/19 History (formulary)] Pantoprazole [Protonix] 40 mg PO DAILY 11/29/19 11/29/19 History Ubidecarenone [Co Q-10] 100 mg PO DAILY 11/29/19 11/29/19 History Allergies Allergy/AdvReac Type Severity Reaction Status Date / Time meperidine [From Demerol] Allergy Rash/Hives Verified 11/29/19 21:00 metronidazole [From Flagyl] Allergy Rash/Hives Verified 11/29/19 21:00 Physical Exam Vitals: Vital Signs Temp Pulse Pulse Resp BP BP Pulse Ox 11/30/19 09:35 53 L 18 141/74 98 11/30/19 04:15 97.6 F 63 16 105/60 99 11/30/19 00:00 97.8 F 55 L 16 146/73 99 11/29/19 23:35 97.7 F 58 L 16 143/79 99 11/29/19 22:10 53 L 17 138/86 97 11/29/19 20:58 97.8 F 78 20 190/85 100 Intake and Output 11/29/19 11/30/19 11/30/19 22:59 06:59 14:59 Intake Total 300 345.19 Balance 300 345.19 Intake: Intake, IV Titration 45.19 Amount Heparin Sod,Pork in 0.45% 45.19 NaCl 25,000 unit In 0.45 % NaCl 1 250ml.bag @ 12 UNITS/KG/HR 7.348 mls/hr IV .Q24H PRABHA Rx#: [id number] Oral 300 300 Other: Weight 61.235 kg 62.9 kg PHYSICAL EXAMINATION: GENERAL: The patient is alert and oriented x3, not in any acute distress. Well developed, well nourished. HEENT: Pupils are round and equally reacting to light. EOMI. No scleral icterus. No conjunctival pallor. Normocephalic, atraumatic. No pharyngeal erythema. No thyromegaly. CARDIOVASCULAR: S1 and S2 present. No murmurs, rubs, or gallops. PULMONARY: Chest is clear to auscultation, no wheezing or crackles. ABDOMEN: Soft, nontender, nondistended, normoactive bowel sounds. No palpable organomegaly. MUSCULOSKELETAL: No joint swelling or deformity. EXTREMITIES: No cyanosis, clubbing, or pedal edema. NEUROLOGICAL: Gross neurological examination did not reveal any focal deficits. SKIN: No rashes. Results CBC & Chem 7: 11/30/19 03:26 11/29/19 21:20 Labs: Abnormal Lab Results - Last 24 Hours (Table) 11/29/19 11/30/19 Range/Units 21:20 03:26 APTT 70.4 H (22.0-30.0) sec Glucose 120 H (74-99) mg/dL Magnesium 2.4 H (1.6-2.3) mg/dL Thrombosis Risk Factor Assmnt - Choose All That Apply Each Risk Factor Represents 2 Points: Age 61-74 years Thrombosis Risk Factor Assessment Total Risk Factor Score: 2 Thrombosis Risk Factor Assessment Level: Low Risk Assessment and Plan Plan: -Chest pain: We will rule out acute medicine syndromes but does possibly of un stable angina cardiology recommended cardiac catheterization but patient prefers not to have a cardiac catheterization. We'll continue with IV heparin continued medical management will be monitored overnight. -Coronary artery disease with history of CABG in the past -Hyperlipidemia -Gastroesophageal reflux disease
[2019-11-30] MEDS: METOPROLOL SUCCINATE (ER) 25 MG TAB.ER.24H PO SCH (11:29)
[2019-11-30] MEDS: ISOSORBIDE MONONITRATE ER 30 MG TAB.ER.24H PO SCH (11:34)
[2019-11-30] MEDS ORDERED: ASPIRIN 325 MG TAB PO STA (14:24)
[2019-11-30] MEDS ORDERED: ALPRAZolam 0.25 MG TAB PO PRN (14:24)
[2019-11-30] MEDS ORDERED: NITROGLYCERIN SL TABS 0.4 MG TAB SUBLINGUAL PRN (14:24)
[2019-11-30] MEDS ORDERED: SODIUM CHLORIDE 0.9% 1,000 ML in EMPTY BAG 1 BAG IV ONE (14:24)
[2019-11-30] MEDS ORDERED: ATORVASTATIN 80 MG TAB PO STA (14:24)
[2019-11-30] MEDS ORDERED: ALPRAZolam 0.5 MG TAB PO PRN (14:24)
[2019-11-30] MEDS ORDERED: ATORVASTATIN 40 MG TAB PO SCH (21:00)
[2019-11-30] MEDS: HEPARIN SOD,PORK IN 0.45% NACL 25,000 UNIT in 0.45% NACL 1 250ML.BAG IV SCH (22:52)
[2019-12-01 05:17] VITALS: RESP 18
[2019-12-01] MEDS: METOPROLOL SUCCINATE (ER) 25 MG TAB.ER.24H PO SCH (05:59)
[2019-12-01] MEDS: ISOSORBIDE MONONITRATE ER 30 MG TAB.ER.24H PO SCH (05:59)
[2019-12-01] MEDS: PANTOPRAZOLE 40 MG TABLET PO SCH (05:59)
[2019-12-01] MEDS: ASPIRIN 81 MG PO SCH (06:02)
[2019-12-01] MEDS: HEPARIN SOD,PORK IN 0.45% NACL 25,000 UNIT in 0.45% NACL 1 250ML.BAG IV SCH (06:03)
[2019-12-01 06:29] LABS: Prothrombin Time 10.7 sec (9.0-12.0)
[2019-12-01 06:36] LABS: Basophils % (A) 0 %; Eosinophils # (A) 0.3 k/uL (0-0.7); Eosinophils % (A) 4 %; HCT 38.6 % (34.0-46.0); HGB 12.8 gm/dL (11.4-16.0); Lymphocytes # (A) 1.7 k/uL (1.0-4.8); Lymphocytes % (A) 21 %; MCH 30.4 pg (25.0-35.0); MCHC 33.1 g/dL (31.0-37.0); MCV 92.1 fL (80.0-100.0); Mean Platelet Volume 6.8; Monocytes # (A) 0.4 k/uL (0-1.0); Monocytes % (A) 5 %; Neutrophils # (A) 5.4 k/uL (1.3-7.7); Neutrophils % (A) 67 %; Platelet Count 182 k/uL (150-450); RBC 4.19 m/uL (3.80-5.40); RDW 12.2 % (11.5-15.5)
[2019-12-01] MEDS ORDERED: LIDOCAINE 1% INJ 10MG/ML (20 ML MDV) ONE (09:40)
[2019-12-01] MEDS ORDERED: fentaNYL (PF) 50 MCG/ML 2 ML AMP ONE (09:40)
[2019-12-01] MEDS ORDERED: fentaNYL (PF) 50 MCG/ML 2 ML AMP IV ONE (09:54)
[2019-12-01] MEDS ORDERED: MIDAZOLAM 2 MG/2 ML VIAL IV ONE (09:55)
[2019-12-01] MEDS ORDERED: IV FLUID CONTINUATION 950 ML IV ONE ×2 (09:56)
[2019-12-01] MEDS ORDERED: LIDOCAINE 1% INJ 10MG/ML (20 ML MDV) SQ ONE (09:56)
[2019-12-01] MEDS ORDERED: IOPAMIDOL-370 125ML BTL INJ ONE (10:25)
[2019-12-01] MEDS ORDERED: RX INFO: IV CONTRAST WAS GIVEN 1 EACH MISC MISCELLANE PRN (10:47)
[2019-12-01] MEDS ORDERED: SODIUM CHLORIDE 0.9% 1,000 ML IV SCH (11:00)
--- NOTE | 2019-12-01 11:03 | CC ---
CARDIAC CATHETERIZATION REPORT INDICATION: Unstable angina. Myrtle is a 69-year-old lady with history of coronary artery disease, status post CABG with SANCHEZ to LAD and a venous graft to diagonal, who presented to hospital with symptoms of unstable angina. She had exertional chest pain and shortness of breath. Ruled out for myocardial infarction. Had ST-T wave changes in the EKG, but her old EKGs also had some changes. Patient was advised cardiac catheterization for definitive evaluation. She was initially reluctant to go through it yesterday, but subsequently changed her mind and decided to go through cardiac cath. She understands risks, benefits and alternatives. PROCEDURE NOTE: After obtaining informed consent, left heart catheterization, coronary angiogram and selective injection of the bypass grafts is performed via the right femoral artery using standard Judah catheters. The SANCHEZ was sub selectively engaged using a hernan catheter. We could not get selective images with the Judah catheter and the SANCHEZ catheter. Patient received moderate conscious sedation. Total sedation time was 33 minutes. FINDINGS: HEMODYNAMICS: Left ventricular end-diastolic pressure is 18 mm. There is no significant gradient across the aortic valve. LEFT VENTRICULOGRAM: Left ventriculogram is not performed. ANGIOGRAPHIC DATA: Left main coronary artery is a normal-sized vessel and is free of stenosis. Divides into left anterior descending coronary artery and circumflex coronary artery. Circumflex coronary artery is free of significant stenosis. LAD appears occluded in its proximal part. The first OM branch has a mild to moderate ostial stenosis. Right coronary artery is a large dominant vessel and is free of significant stenosis. SELECTIVE INJECTION OF THE BYPASS GRAFTS: SANCHEZ to LAD appears patent. Both proximal and distal anastomotic sites are free of significant disease. The [place] LAD is free of significant disease. Selective injection of the venous graft to the diagonal. It appears patent. There is mild atherosclerotic plaque at the distal anastomotic site. CONCLUSION: 1. Chronically occluded LAD with normal right coronary artery and circumflex coronary artery with a mild atherosclerotic plaque in the ostial portion of an OM branch. 2. Patent SANCHEZ to LAD and venous graft to diagonal. PLAN: I reviewed angiographic data with the patient and told her that she does not require angioplasty with stent placement at this time. Her management is going to be with medical therapy. I am going to add nitrates to what she is on at the moment. 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 MMODL / IJN: [id number] /
[2019-12-01 11:16] VITALS: TEMP 97.7
[2019-12-01] MEDS: HYDROcodone/APAP 5-325MG 1 EACH TAB PO PRN (12:24)
--- NOTE | 2019-12-01 12:27 | P.DS ---
Providers Date of admission: 12/01/19 08:51 Attending physician: Balbir Villeda MD Consults: 11/29/19 22:25 Consult Physician Urgent Consulting Provider: [facility] Consult Reason/Comments: acute chest pain, hx ascad with cabg Do you want consulting provider notified?: Yes Primary care physician: Roel Carrizales [facility] Course: Patient is admitted for chest pain patient underwent cardiac catheterization because of for new T-wave inversions in the anterolateral leads him a cardiac catheterization showed chronically occluded LAD with normal coronary artery circumflex artery and mild S cardiac back in the ostial portion of the OM branch and a patent SANCHEZ to LAD and the venous graft to diagonal. Patient did not require any stenting or angioplasty of any of the blood vessels patient was started on review of 30 mg and patient will be discharged today. PHYSICAL EXAMINATION: GENERAL: The patient is alert and oriented x3, not in any acute distress. Well developed, well nourished. HEENT: Pupils are round and equally reacting to light. EOMI. No scleral icterus. No conjunctival pallor. Normocephalic, atraumatic. No pharyngeal erythema. No thyromegaly. CARDIOVASCULAR: S1 and S2 present. No murmurs, rubs, or gallops. PULMONARY: Chest is clear to auscultation, no wheezing or crackles. ABDOMEN: Soft, nontender, nondistended, normoactive bowel sounds. No palpable organomegaly. MUSCULOSKELETAL: No joint swelling or deformity. EXTREMITIES: No cyanosis, clubbing, or pedal edema. NEUROLOGICAL: Gross neurological examination did not reveal any focal deficits. SKIN: No rashes. Rest of the medical problems and hospice course please refer to my HPI from yesterday. Patient Condition at Discharge: Stable Plan - Discharge Summary Discharge Rx Participant: Yes New Discharge Prescriptions: No Action [place]-3 Fatty Acids/Fish Oil [Fish Oil 1,000 mg Softgel] 1 cap PO DAILY Nitroglycerin Sl Tabs [Nitrostat] 0.4 mg SUBLINGUAL Q5M PRN PRN Reason: Chest Pain Albuterol Inhaler [Ventolin Hfa Inhaler] 2 puff INHALATION RT-QID PRN PRN Reason: Shortness Of Breath Rosuvastatin [Crestor] 20 mg PO HS Metoprolol Succinate (ER) [Toprol Xl] 18.75 mg PO DAILY Cholecalciferol (Vitamin D3) [Vitamin D3] 2,000 unit PO DAILY Aspirin EC [Ecotrin Low Dose] 81 mg PO DAILY HYDROcodone/APAP 5-325MG [[place] 5-325] 0.5 tab PO TID PRN PRN Reason: Pain Multivitamins, Thera [Multivitamin (formulary)] 1 tab PO DAILY Pantoprazole [Protonix] 40 mg PO DAILY Ubidecarenone [Co Q-10] 100 mg PO DAILY Discharge Medication List Albuterol Inhaler [Ventolin Hfa Inhaler] 2 puff INHALATION RT-QID PRN 05/27/17 [History] Aspirin EC [Ecotrin Low Dose] 81 mg PO DAILY 05/27/17 [History] Cholecalciferol (Vitamin D3) [Vitamin D3] 2,000 unit PO DAILY 05/27/17 [History] Metoprolol Succinate (ER) [Toprol Xl] 18.75 mg PO DAILY 05/27/17 [History] Nitroglycerin Sl Tabs [Nitrostat] 0.4 mg SUBLINGUAL Q5M PRN 05/27/17 [History] [place]-3 Fatty Acids/Fish Oil [Fish Oil 1,000 mg Softgel] 1 cap PO DAILY 05/27/17 [History] Rosuvastatin [Crestor] 20 mg PO HS 05/27/17 [History] HYDROcodone/APAP 5-325MG [[place] 5-325] 0.5 tab PO TID PRN 12/31/17 [History] Multivitamins, Thera [Multivitamin (formulary)] 1 tab PO DAILY 11/29/19 [History] Pantoprazole [Protonix] 40 mg PO DAILY 11/29/19 [History] Ubidecarenone [Co Q-10] 100 mg PO DAILY 11/29/19 [History] Follow up Appointment(s)/Referral(s): Roel Carrizales MD [Primary Care Provider] - 1-2 days
[2019-12-01 16:25] VITALS: BP 101/56
[2019-12-01 17:54] VITALS: PULSE 53
== END 2019-12-01 18:16 | disposition home or self-care (01) ==
LOC: EC 20:56 → 3SCARD 22:15 → OBSVTOIN 12-01 08:51 → INTOOBSV 12-01 08:51
PROVIDERS: ADMIT Internal Medicine; ATTEND Internal Medicine
DX: I25.110 Atherosclerotic heart disease of native coronary artery with unstable angina pectoris (principal); I25.82 Chronic total occlusion of coronary artery; I10 Essential (primary) hypertension; E78.5 Hyperlipidemia, unspecified; M19.90 Unspecified osteoarthritis, unspecified site; K21.9 Gastro-esophageal reflux disease without esophagitis; Z79.82 Long term (current) use of aspirin; Z79.899 Other long term (current) drug therapy; Z79.891 Long term (current) use of opiate analgesic; Z88.1 Allergy status to other antibiotic agents; Z88.5 Allergy status to narcotic agent; Z95.5 Presence of coronary angioplasty implant and graft; Z95.1 Presence of aortocoronary bypass graft; Z87.19 Personal history of other diseases of the digestive system; Z87.891 Personal history of nicotine dependence; Z90.710 Acquired absence of both cervix and uterus
CPT/HCPCS: 96366 ×2; 93005 ×2; 96376; 96365; 99291; 36415; 93459; 83880; 80053; 83735; 84484 ×2; 85025 ×3; 85610 ×3; 85730 ×3; 71046; 99152; 99153; G0378 ×3; C1769 ×3; C1760; C1894; J2250; J1644 ×3; J2001; J3010; Q9967